=== PATIENT | female | born 1965 | race Hispanic/Latino ===

== ENCOUNTER 2020-09-23 10:12 | Emergency (ER) | payer SELFPAY ==
[~2020-09-23] VITALS: Ht 160 cm; Wt 77.1 kg
== END 2020-09-23 10:54 | disposition home or self-care (01) ==
LOC: ER 10:52
DX: I10 Essential (primary) hypertension (principal); F17.210 Nicotine dependence, cigarettes, uncomplicated
CPT/HCPCS: 99282